=== PATIENT | female | born 1980 | race Caucasian/White ===

== ENCOUNTER → 2017-02-02 | Outpatient (CLI) | payer BC | LOC: LAB 07:20 | DX: Z00.00 Encounter for general adult medical examination without abnormal findings (principal) ==

== ENCOUNTER 2017-04-05 11:10 | Outpatient (RCR) | payer BC | END 2017-07-04 | disposition home or self-care (01) | LOC: PT | DX: M54.2 Cervicalgia (principal); G89.29 Other chronic pain ==

== ENCOUNTER → 2017-09-27 | Outpatient (CLI) | payer BC | LOC: LAB 12:23 | DX: F41.1 Generalized anxiety disorder (principal) ==

== ENCOUNTER → 2024-04-07 | Outpatient (CLI) | payer BC ==
[2024-04-07 14:37] LABS: URINE APPEARANCE SLIGHTLY CLOUDY (CLEAR); URINE COLOR YELLOW (YELLOW)
[2024-04-07 14:38] LABS: PH-URINE 7.5 (5.0 - 8.0); URINE BILIRUBIN NEGATIVE (NEGATIVE); URINE BLOOD TRACE-INTACT (NEGATIVE); URINE GLUCOSE NEGATIVE (NEGATIVE); URINE KETONE NEGATIVE (NEGATIVE); URINE LEUKOCYTE ESTERASE TRACE (NEGATIVE); URINE NITRATE POSITIVE (NEGATIVE); URINE PROTEIN(semi-quant) NEGATIVE (NEGATIVE)
[2024-04-07 14:39] LABS: URINE WBC 16-30 /hpf (0-3)
== END ==
LOC: LAB 14:15
PROVIDERS: Family Medicine
DX: R30.0 Dysuria (principal)

== ENCOUNTER → 2024-06-04 | Outpatient (CLI) | payer BC | LOC: MAMMO 10:21 | DX: Z12.31 Encounter for screening mammogram for malignant neoplasm of breast (principal); Z01.419 Encounter for gynecological examination (general) (routine) without abnormal findings ==